=== PATIENT | female | born 1990 | race American Indian/Alaskan Native ===

== ENCOUNTER 2019-03-22 04:25 | Emergency (ER) | payer OTHER ==
[2019-03-22 04:30] VITALS: BP 124/89
--- NOTE | 2019-03-22 08:28 | Emergency Department Report ---
ED General Adult HPI - General Chief complaint: Pain General Stated complaint: WEAK/SICK Time Seen by Provider: 03/22/19 08:17 Source: patient Mode of arrival: Ambulatory Limitations: No Limitations - History of Present Illness Initial comments: Chief complaint: "I just need something for my job." Sofía is a very pleasant 28-year-old female who has a history of autoimmune disorder and MVP. She's was told that she was placed in a connective tissue spectrum by her director of people. She has been evaluated for rheumatoid arthritis, Sjogren's syndrome versus SLE. For the past 4 years she's been evaluated for photosensitivity, rash generalized weakness body aches. Her blood work is also indicated that she may be borderline diabetic as well as anemic. She is followed closely by director of people. However she does not have a primary care physician. 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 She politely requests work note that will delineate her physical limitations considering she has had this chronic illness. -: Gradual, year(s) (4) Quality: aching Consistency: constant Improves with: none Worsens with: other (sunlight) - Related Data Allergies Allergy/AdvReac Type Severity Reaction Status Date / Time No Known Allergies Allergy Verified 03/22/19 04:34 ED Review of Systems ROS: Stated complaint: WEAK/SICK Other details as noted in HPI ED Past Medical Hx - Past Medical History Previous Medical History?: Yes Additional medical history: Rhumatoid - Surgical History Past Surgical History?: Yes Additional Surgical History: sinuses - Social History Smoking Status: Never Smoker Substance Use Type: None ED Physical Exam - General Limitations: No Limitations General appearance: alert, in no apparent distress - Head Head exam: Present: atraumatic, normocephalic - Eye Eye exam: Present: normal appearance. Absent: scleral icterus, conjunctival injection - ENT ENT exam: Present: normal exam, normal orophraynx, mucous membranes moist - Neck Neck exam: Present: normal inspection, full ROM. Absent: tenderness, meningismus - Respiratory Respiratory exam: Present: normal lung sounds bilaterally. Absent: respiratory distress, wheezes, rales, rhonchi - Cardiovascular Cardiovascular Exam: Present: regular rate, normal rhythm, normal heart sounds - GI/Abdominal GI/Abdominal exam: Present: soft. Absent: distended, tenderness, guarding, rebound - Extremities Exam Extremities exam: Present: normal inspection, full ROM, tenderness - Neurological Exam Neurological exam: Present: alert, altered, oriented X3 - Psychiatric Psychiatric exam: Present: normal affect, normal mood - Skin Skin exam: Present: warm, dry, intact, normal color ED Course Vital Signs 03/22/19 04:29 Temperature 98.0 F Pulse Rate 78 Respiratory 18 Rate Blood Pressure 124/89 O2 Sat by Pulse 100 Oximetry ED Medical Decision Making - Medical Decision Making Mrs. Hull has a history of mitral valve prolapse and autoimmune disorder. No evidence of acute emergent illness. Work note provided to be excused for the next 3 days. I strongly encouraged her to contact her [facility] [place] insurance plan to obtain a primary care physician, advocate and bank teller Critical care attestation.: If time is entered above; I have spent that time in minutes in the direct care of this critically ill patient, excluding procedure time. ED Disposition Clinical Impression: Autoimmune disease, Mitral valve prolapse Disposition: DC- TO HOME OR SELFCARE Is pt being admited?: No Does the pt Need Aspirin: No Condition: Stable Referrals: NALINI HAWKINS MD [Primary Care Provider] - 3-5 Days SUDHAKAR MOTA MD [Staff Physician] - [place] Forms: Work/School Release Form(ED)
== END 2019-03-22 08:33 | disposition home or self-care (01) ==
LOC: ED 04:25
DX: I34.1 Nonrheumatic mitral (valve) prolapse (principal); M35.00 Sjogren syndrome, unspecified
CPT/HCPCS: 99281

== ENCOUNTER 2019-07-04 16:13 | Emergency (ER) | payer OTHER ==
[2019-07-04 16:24] VITALS: BP 111/85
[2019-07-04] MEDS ORDERED: ZOFRAN ODT PO ONE (17:11)
[2019-07-04] MEDS ORDERED: TYLENOL PO ONE ×2 (17:11)
--- NOTE | 2019-07-04 17:11 | Event Note ---
ED Screening Note Date of service: 07/04/19 Time: 17:07 ED Screening Note: This is a 28 y.o. F. that presents to the ER with vaginal bleeding and pelvic cramping that started 1-2 hours ago. Recent confirmation of 5 weeks gestation. LMP 05/26/2019, A1 This initial assessment/diagnostic orders/clinical plan/treatment(s) is/are subject to change based on patients health status, clinical progression and re- assessment by fellow clinical providers in the ED. Further treatment and workup at subsequent clinical providers discretion. Patient/guardian urged not to elope from the ED as their condition may be serious if not clinically assessed and managed. Initial orders include: Labs and OB US Given zofran ODT and Tylenol
[2019-07-04] MEDS ORDERED: TYLENOL ONE (17:15)
[2019-07-04] MEDS ORDERED: ZOFRAN ODT ONE (17:15)
[2019-07-04 18:38] LABS: Bilirubin,Urine NEG (Negative); Blood,Urine MOD (Negative); Color,Urine Red (Yellow); Urobilinogen,Urine < 2.0 mg/dL (<2.0)
[2019-07-04 18:40] LABS: Protein,Urine >500 mg/dL (Negative); RBC,Urine > 182.0 /HPF (0.0-6.0)
[2019-07-04 18:41] LABS: WBC,Urine > 182.0 /HPF (0.0-6.0)
--- NOTE | 2019-07-04 19:24 | Ultrasound Report ---
OB Ultrasound HISTORY: 5 wks gest, vag bleed, r/o miscarriage. No serum beta hCG level available. TECHNIQUE: Grayscale and color Doppler imaging performed. COMPARISON: None FINDINGS: Transabdominal imaging was performed. The uterus measures 11.3 x 5.3 x 6.2 cm with endometr ial echo complex measuring 1.6 cm. No intrauterine gestation identified. Both ovaries are normal in s ize and appearance with no mass identified. There is preserved blood flow. No appreciable pelvic free fluid. IMPRESSION: No intrauterine gestation identified. Correlate with beta hCG level. Otherwise unremarkab le exam. Signer Name: Serafin Kim MD Signed: 07/04/2019 7:20 PM Workstation Name: [id number]
--- NOTE | 2019-07-04 20:13 | Emergency Department Report ---
Blank Doc - Documentation Documentation: Patient has refused blood draw 2. Provider when spoke to patient and discussed with her that were not able to make an assessment and diagnoses R until we get blood work done. Patient verbalized understanding and authorized for blood to be drawn.
[2019-07-04 20:35] LABS: Basophils % (Auto) 0.2 % (0.0-1.8); Hematocrit 35.5 % (30.3-42.9); Hemoglobin 11.4 gm/dl (10.1-14.3); Lymphocytes # (Auto) 1.3 K/mm3 (1.2-5.4); Lymphocytes % (Auto) 10.5 % (13.4-35.0); Mean Corpuscular HGB Conc 32 % (30-34); Mean Corpuscular Volume 72 fl (79-97); Monocytes # (Auto) 0.6 K/mm3 (0.0-0.8); Monocytes % (Auto) 4.5 % (0.0-7.3); Platelet Count 196 K/mm3 (140-440); Red Blood Count 4.93 M/mm3 (3.65-5.03); Red Cell Distribution Width 15.8 % (13.2-15.2)
--- NOTE | 2019-07-04 23:00 | Emergency Department Report ---
ED Female HPI - General Chief complaint: Vaginal Bleeding Stated complaint: VAGINAL BLEEDING Time Seen by Provider: 07/04/19 17:06 Source: patient, EMS Mode of arrival: Wheelchair Limitations: No Limitations - History of Present Illness Initial comments: 28-year-old -[place] female presents to the emergency room for vaginal bleeding onset at 1 PM. Patient states that she's gone through 2-3 pads since 3 PM. Patient reports that she was approximately 5 weeks she had confirmation at [facility] in [place]. Patient reports she is having some mild cramping she has been drinking okay and voiding well able to eat. Patient is 2 para 0. Last menstrual. With 05/26/2019. Complaint: vaginal bleeding - Related Data Allergies Allergy/AdvReac Type Severity Reaction Status Date / Time No Known Allergies Allergy Verified 07/04/19 17:07 ED Review of Systems ROS: Stated complaint: VAGINAL BLEEDING Other details as noted in HPI ED Past Medical Hx - Past Medical History Previous Medical History?: Yes Additional medical history: Rheumatoid, Miscarriage - Surgical History Past Surgical History?: Yes Additional Surgical History: sinuses - Social History Smoking Status: Never Smoker Substance Use Type: Alcohol ED Physical Exam - General Limitations: No Limitations ED Course Vital Signs 07/04/19 07/04/19 07/04/19 16:19 17:15 17:19 Temperature 99.0 F Pulse Rate 88 Respiratory 18 16 16 Rate Blood Pressure 111/85 O2 Sat by Pulse 100 Oximetry ED Medical Decision Making - Lab Data Result diagrams: 07/04/19 Unknown - Radiology Data Radiology results: report reviewed Patient: RONALDO PHIPPS MR#: [id number] : 1990 Acct:[id number] Age/Sex: 28 / F ADM Date: 07/04/19 Loc: ED Attending Dr: Ordering Physician: DARIO JESUS Date of Service: 07/04/19 Procedure(s): US OB <= 14 weeks fetus Accession Number(s): [id number] cc: DARIO JESUS OB Ultrasound HISTORY: 5 wks gest, vag bleed, r/o miscarriage. No serum beta hCG level available. TECHNIQUE: Grayscale and color Doppler imaging performed. COMPARISON: None FINDINGS: Transabdominal imaging was performed. The uterus measures 11.3 x 5.3 x 6.2 cm with endometrial echo complex measuring 1.6 cm. No intrauterine gestation identified. Both ovaries are normal in size and appearance with no mass identified. There is preserved blood flow. No appreciable pelvic free fluid. IMPRESSION: No intrauterine gestation identified. Correlate with beta hCG level. Otherwise unremarkable exam. Signer Name: Serafin Kim MD Signed: 07/04/2019 7:20 PM Workstation Name: [id number] Transcribed By: JEFF Dictated By: Serafin Kim MD Electronically Authenticated By: Serafin Kim MD Signed Date/Time: 07/04/191919 DD/ 18 TD/TT: - Medical Decision Making 28-year-old -[place] female presents to the emergency room for vaginal bleeding onset at 1 PM. Patient states that she's gone through 2-3 pads since 3 PM. Patient reports that she was approximately 5 weeks she had confirmation at [facility] in [place]. Patient reports she is having some mild cramping she has been drinking okay and voiding well able to eat. Patient is 2 para 0. Last menstrual. With 05/26/2019. Ultrasound shows no gestational sac Critical care attestation.: If time is entered above; I have spent that time in minutes in the direct care of this critically ill patient, excluding procedure time. ED Disposition Clinical Impression: Miscarriage Disposition: DC-01 TO HOME OR SELFCARE Is pt being admited?: No Does the pt Need Aspirin: No Condition: Stable Instructions: Spontaneous Miscarriage (ED) Additional Instructions: Please follow up with [facility] OB department on Saturday to have a repeat hCG. Referrals: PRIMARY CAREMD [Primary Care Provider] - 3-5 Days [facility] [Outside] - 3-5 Days
== END 2019-07-04 23:45 | disposition home or self-care (01) ==
LOC: ED 16:13
DX: O20.0 Threatened abortion (principal)
CPT/HCPCS: 36415; 76801; 81001; 84702; 84703; 85025; 86900; 86901; Q0162

== ENCOUNTER 2019-10-23 19:00 | Emergency (ER) | payer OTHER ==
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
[2019-10-23] MEDS ORDERED: ACETAMINOPHEN 500 MG TAB PO ONE (23:01)
[2019-10-23] MEDS ORDERED: IBUPROFEN 600 MG TAB PO ONE (23:01)
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
[2019-10-24 02:11] VITALS: BP 116/82
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
[2019-10-24 02:36] LABS: Bilirubin,Urine Negative (Negative); Blood,Urine Negative (Negative); Color,Urine Yellow (Yellow)
[2019-10-24 02:37] LABS: Ictotest,Urine Negative (Negative); Mucus,Urine 3+ /HPF; Protein,Urine <15 mg/dL mg/dL (Negative); Urobilinogen,Urine < 2.0 mg/dL (<2.0)
[2019-10-24 02:40] LABS: HCG Qualitative,Urine Negative (Negative)
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
== END 2019-10-24 02:50 | disposition home or self-care (01) ==
LOC: ED 19:00
DX: S43.401A Unspecified sprain of right shoulder joint, initial encounter (principal); M62.830 Muscle spasm of back; M62.838 Other muscle spasm; Z79.899 Other long term (current) drug therapy; Z98.890 Other specified postprocedural states; V49.49XA Driver injured in collision with other motor vehicles in traffic accident, initial encounter; Y99.8 Other external cause status; Y92.410 Unspecified street and highway as the place of occurrence of the external cause; Y93.89 Activity, other specified
CPT/HCPCS: 72040; 72100; 81001; 81025

== ENCOUNTER 2021-03-20 09:20 | Emergency (ER) | payer SELFPAY ==
[2021-03-20 09:27] VITALS: BP 125/80
== END 2021-03-20 09:40 | disposition left against medical advice (07) ==
LOC: ED 09:20
DX: T78.40XA Allergy, unspecified, initial encounter (principal); Z53.21 Procedure and treatment not carried out due to patient leaving prior to being seen by health care provider; X58.XXXA Exposure to other specified factors, initial encounter

== ENCOUNTER 2022-07-19 08:17 | Emergency (ER) | payer MEDICAID ==
[2022-07-19 09:02] LABS: Bilirubin,Urine NEG (Negative); Blood,Urine NEG (Negative); Color,Urine Yellow (Yellow); Protein,Urine <15 mg/dL mg/dL (Negative); Urobilinogen,Urine < 2 mg/dL (<2.0)
[2022-07-19 09:04] LABS: HCG Qualitative,Urine Negative (Negative)
[2022-07-19 09:11] LABS: RBC,Urine < 1.0 /HPF (0.0-6.0); WBC,Urine < 1.0 /HPF (0.0-6.0)
--- NOTE | 2022-07-19 09:32 | Emergency Department Report ---
ED Female HPI - General Chief complaint: Abdominal Pain Stated complaint: ECTOPIC Time Seen by Provider: 07/19/22 09:25 Source: patient Mode of arrival: Ambulatory Limitations: No Limitations - History of Present Illness Initial comments: 31-year-old -[place] female status post ectopic 2 months ago, had 1 regular. Now her period is 6 days late. Patient concerned that she may have another ectopic . Has minimal suprapubic cramping, but denies any having fever chills diarrhea vomiting. MD Complaint: pelvic pain -: Gradual Radiation: non-radiating Severity: mild Quality: cramping Consistency: intermittent Improves with: none Worsens with: none Are you Now?: No Associated Symptoms: denies other symptoms - Related Data Sexually active: No Home Medications Medication Instructions Recorded Confirmed Last Taken No Known Home Medications [No 07/19/22 07/19/22 Unknown Reported Home Medications] Allergies Allergy/AdvReac Type Severity Reaction Status Date / Time Sulfa (Sulfonamide Allergy Hives Verified 03/20/21 09:23 Antibiotics) ED Review of Systems ROS: Stated complaint: ECTOPIC Other details as noted in HPI Constitutional: denies: chills, fever Eyes: denies: eye pain, eye discharge, vision change ENT: denies: ear pain, throat pain Respiratory: denies: cough, shortness of breath, wheezing Cardiovascular: denies: chest pain, palpitations Endocrine: no symptoms reported Gastrointestinal: denies: abdominal pain, nausea, diarrhea Genitourinary: denies: urgency, dysuria, discharge Musculoskeletal: denies: back pain, joint swelling, arthralgia Skin: denies: rash, lesions Neurological: denies: headache, weakness, paresthesias Psychiatric: denies: anxiety, depression Hematological/Lymphatic: denies: easy bleeding, easy bruising ED Past Medical Hx - Past Medical History Previous Medical History?: Yes Additional medical history: Rheumatoid, UCTD,Miscarriage ectopic - Surgical History Additional Surgical History: sinuses - Social History Smoking Status: Never Smoker Substance Use Type: None - Medications Home Medications: Home Medications Medication Instructions Recorded Confirmed Last Taken Type No Known Home Medications [No 07/19/22 07/19/22 Unknown History Reported Home Medications] ED Physical Exam - General Limitations: No Limitations General appearance: alert, in no apparent distress - Head Head exam: Present: atraumatic, normocephalic - Eye Eye exam: Present: normal appearance, PERRL - ENT ENT exam: Present: mucous membranes moist - Neck Neck exam: Present: normal inspection - Respiratory Respiratory exam: Present: normal lung sounds bilaterally. Absent: respiratory distress - Cardiovascular Cardiovascular Exam: Present: regular rate, normal rhythm. Absent: systolic murmur, diastolic murmur, rubs, gallop - GI/Abdominal GI/Abdominal exam: Present: soft, normal bowel sounds. Absent: distended, tenderness, guarding - Extremities Exam Extremities exam: Present: normal inspection - Back Exam Back exam: Present: normal inspection - Neurological Exam Neurological exam: Present: alert, oriented X3 - Psychiatric Psychiatric exam: Present: normal affect, normal mood - Skin Skin exam: Present: warm, dry, intact, normal color. Absent: rash ED Course Vital Signs 07/19/22 07/19/22 08:23 09:38 Temperature 99.6 F Pulse Rate 90 Respiratory 16 Rate Blood Pressure 117/87 [Right] O2 Sat by Pulse 100 100 Oximetry Critical care attestation.: If time is entered above; I have spent that time in minutes in the direct care of this critically ill patient, excluding procedure time. ED Disposition Clinical Impression: Amenorrhea Disposition: HOME / SELF CARE / HOMELESS Is pt being admited?: No Does the pt Need Aspirin: No Condition: Stable Instructions: Abdominal Pain (ED), Secondary Amenorrhea Additional Instructions: Must see [employer] this week.
[2022-07-19 09:51] LABS: Mucus,Urine FEW /HPF; Renal Epithelial Cells,Urine <1 /LPF
[2022-07-19 10:48] VITALS: BP 132/77
== END 2022-07-19 10:47 | disposition home or self-care (01) ==
LOC: ED 08:17
DX: N91.2 Amenorrhea, unspecified (principal); Z88.1 Allergy status to other antibiotic agents
CPT/HCPCS: 36415; 81001; 81025; 84703; 99283